=== PATIENT | female | born 1950 | race Caucasian/White ===

== ENCOUNTER 2017-04-16 09:06 | Emergency (ER) | payer OTHER ==
[2017-04-16 09:20] VITALS: PULSE 102; TEMP 98.8; BMI 29.7
--- NOTE | 2017-04-16 09:20 | PDOC ---
History of Present Illness - General Chief Complaint: Injury Stated Complaint: LEFT KNEE PAIN Time Seen by Provider: 04/16/17 09:19 - History of Present Illness Initial Comments: 04/16/17 09:32 Chief complaint: Left knee pain History of present illness: Twisted left knee at school yesterday, heard a "pop ", pain and difficulty ambulating thereafter. No prior knee problems Review of systems: No prior knee injuries, rheumatic or arthritic disease. No distal numbness tingling pain or weakness Past medical history: Macular degeneration. Otherwise healthy. No medications Family/social history reviewed and noncontributory Physical exam: Alert oriented no acute distress cheerful and cooperative. Pain with weightbearing and ambulation due to knee injury Afebrile, vital signs stable except for mildly elevated blood pressure, but the patient admits to feeling quite nervous due to her ER visit HEENT clear Neck supple without bruit mass or nodes Chest clear CV regular without murmur rub or gallop Abdomen benign Neurological intact Left knee: No swelling, deformity, effusion, or point tenderness medial, laterally, prepatellar, or popliteal. No popliteal masses. Pain is felt in the popliteal area. MCL and LCL without stress tenderness or laxity. Konstantin is negative. Full range of motion in flexion and extension. Impression: Knee sprain, possible injury to anterior or posterior cruciate ligament, but no evidence of tear Plan: X-ray and further orthopedic management depending on results. Past History - Past Medical History Allergies/Adverse Reactions: Allergies Allergy/AdvReac Type Severity Reaction Status Date / Time No Known Allergies Allergy Verified 04/16/17 09:08 Home Medications: Ambulatory Orders NK [No Known Home Medication] 04/16/17 Medical Decision Making - Medical Decision Making 04/16/17 09:40 X-ray: Negative Rickie applied. Patient more comfortable. No distal numbness tingling pain or weakness. Good capillary refill. Good toe motion Ambulating adequately to follow-up with orthopedist if no improvement *DC/Admit/Observation/Transfer Diagnosis at time of Disposition: Knee sprain Qualifiers: Encounter type: initial encounter Involved ligament of knee: unspecified ligament Laterality: left Qualified Code(s): S83.92XA - Sprain of unspecified site of left knee, initial encounter - Discharge Dispostion Disposition: HOME Condition at time of disposition: Improved Admit: No - Referrals Referrals: Cuco Bautista MD [Staff Physician] - 1 week - Patient Instructions Printed Discharge Instructions: DI for Knee Sprain, How to Apply an Rickie Wrap Additional Instructions: Rest, ice, elevate with pillow under the back of the knee. Continue Aleve twice daily If symptoms persist 3-5 days, see orthopedist for further evaluation and treatment. - Post Discharge Activity Forms/Work/School Notes: Back to Work
[2017-04-16 10:14] VITALS: BP 159/96
== END 2017-04-16 10:14 | disposition home or self-care (01) ==
LOC: FER 09:06
DX: S83.92XA Sprain of unspecified site of left knee, initial encounter (principal); X58.XXXA Exposure to other specified factors, initial encounter; Y93.89 Activity, other specified; Y92.219 Unspecified school as the place of occurrence of the external cause; Y99.0 Civilian activity done for income or pay
CPT/HCPCS: 73560-TC-LT-FY; 99282-25

== ENCOUNTER 2020-10-17 04:17 | Day surgery (SDC) | payer OTHER ==
[2020-10-15 17:21] VITALS: BMI 32.8
[2020-10-17 07:23] VITALS: TEMP 98.5
[2020-10-17] MEDS ORDERED: LIDOCAINE HCL 1% PRESERVATIVE FREE - 30ML VIAL PNB ONE (09:39)
[2020-10-17] MEDS ORDERED: BUPIVACAINE HCL/PF 0.5% (5MG/ML) 10 ML VIAL PNB ONE (09:39)
[2020-10-17] MEDS ORDERED: TRIAMCINOLONE ACET 40MG/1ML VIAL IJ ONE (09:40)
[2020-10-17] MEDS ORDERED: IOHEXOL 180 MG/1 ML ML IJ ONE (09:41)
[2020-10-17] MEDS ORDERED: LIDOCAINE HCL/PF 1% SDV 5ML VIAL ONE (10:32)
[2020-10-17] MEDS ORDERED: TRIAMCINOLONE ACET 40MG/1ML VIAL ONE (10:32)
[2020-10-17 11:26] VITALS: BP 130/80; PULSE 78
== END 2020-10-17 10:35 | disposition home or self-care (01) ==
LOC: JASU-SURG 04:17
PROVIDERS: ATTEND Pain Medicine Pain Medicine
PROC: 3E0U3BZ Introduction of Anesthetic Agent into Joints, Percutaneous Approach (ICD-10-PCS; 2020-10-17)
PROC: 3E0U33Z Introduction of Anti-inflammatory into Joints, Percutaneous Approach (ICD-10-PCS; principal; 2020-10-17 08:45)
DX: M53.3 Sacrococcygeal disorders, not elsewhere classified (principal)
CPT/HCPCS: 76000-TC-FY